=== PATIENT | male | born 1995 | race Caucasian/White ===

== ENCOUNTER → 2018-05-31 13:58 | Outpatient (CLI) | payer OTHER, MEDICAID, SELFPAY ==
--- NOTE | 2018-05-31 | DI.MRI.S_ITS ---
PROCEDURE: MR KNEE RT WO CON INDICATIONS: PAIN IN RIGHT KNEE TECHNIQUE: Noncontrast sagittal PD fast spin echo and T2 fast spin echo with fat saturation, sagittal 3-D FLASH with fat saturation; coronal T1 spin echo and PD fast spin echo with fat saturation, and axial PD fast spin echo with fat saturation through the knee. COMPARISON: None. FINDINGS: Image quality: Excellent. Menisci: The medial and lateral menisci demonstrate normal morphology and internal signal. The meniscal root ligaments appear intact. Cruciate ligaments: The anterior and posterior cruciate ligaments appear intact. Medial structures: The medial collateral ligament appears intact. The posterior oblique ligament, semimembranosus tendon insertions, oblique popliteal ligament, and meniscocapsular junction appear intact. Visualized portions of the pes anserinus tendons appear normal. No abnormal bursal fluid. Lateral structures: The lateral collateral ligament, long and short heads of the biceps femoris tendon appear intact. The popliteus tendon appears normal; the popliteofibular ligament appears intact. The posterosuperior and anteroinferior popliteomeniscal fascicles appear intact. The arcuate and fabellofibular ligaments appear intact, on either side of the lateral inferior geniculate artery. Iliotibial band appears normal. Anterior structures: The quadriceps tendon appears intact. There is mild thickening of the proximal and distal patellar tendon with mild internal signal change within the distal insertion. There is extensive soft tissue edema surrounding the distal insertion of the patellar tendon Patellar alignment is normal. No femoral trochlear dysplasia or ventral trochlear prominence. No edema in the infrapatellar fat pad. Bones and cartilage: No bone marrow contusions or fractures. The cartilage of the medial and lateral femorotibial compartments, as well as the patellofemoral compartment, appears normal in thickness. Joint space: There is physiologic knee joint fluid. No Gallardo's cyst. Normal appearing synovial plicae are incidentally noted. IMPRESSION: Proximal and distal patellar tendinopathy with adjacent soft tissue edema. Elsewhere, no internal derangement. Dictated by: Clarence Daley M.D. on 05/31/2018 at 15:29 Approved by: Clarence Daley M.D. on 05/31/2018 at 15:34
== END ==
PROVIDERS: Family Provider Physical Medicine & Rehabilitation; PCP Physical Medicine & Rehabilitation; Visit Provider Family Medicine Geriatric Medicine
DX: M25.561 Pain in right knee (principal); R60.0 Localized edema
CPT/HCPCS: 73721

== ENCOUNTER → 2022-05-23 11:42 | Outpatient (CLI) | payer OTHER, SELFPAY ==
--- NOTE | 2022-05-23 11:48 | DI.MRI.S_ITS ---
PROCEDURE: MR KNEE RT WO CON INDICATIONS: Pain in right knee TECHNIQUE: Noncontrast sagittal PD fast spin echo and T2 fast spin echo with fat saturation, sagittal 3-D FLASH with fat saturation; coronal T1 spin echo and PD fast spin echo with fat saturation, and axial PD fast spin echo with fat saturation through the knee. COMPARISON: [facility], MR, MR KNEE RT WO CON, 05/31/2018, 14:17. FINDINGS: Image quality: Excellent. Menisci: There is mild T2 signal elevation at the posterior meniscal capsular junction of the posterior horn medial meniscus. Medial meniscus is otherwise within normal limits. Lateral meniscus is within normal limits. Cruciate ligaments: The anterior and posterior cruciate ligaments appear intact. Medial structures: The medial collateral ligament appears intact. Visualized portions of the pes anserinus tendons appear normal. No abnormal bursal fluid. Lateral structures: The lateral collateral ligament, long and short heads of the biceps femoris tendon appear intact. The popliteus tendon appears normal. Iliotibial band appears normal. Anterior structures: The quadriceps and patellar tendons appear intact. Previously seen high T2 signal intensity within the patellar tendon has resolved. Patellar alignment is normal. No femoral trochlear dysplasia or ventral trochlear prominence. No edema in the infrapatellar fat pad. Bones and cartilage: No bone marrow contusions or fractures. The cartilage of the medial and lateral femorotibial compartments, as well as the patellofemoral compartment, appears normal in thickness. Joint space: There is physiologic knee joint fluid. No Gallardo's cyst. Normal appearing synovial plicae are incidentally noted. IMPRESSION: 1. Meniscal capsular junction injury involving the medial meniscus. 2. Resolved patellar tendinitis. Dictated by: Marci Bolton M.D. on 05/23/2022 at 13:34 Approved by: Marci Bolton M.D. on 05/23/2022 at 16:29
== END ==
PROVIDERS: Referring Provider Orthopaedic Surgery; Visit Provider Orthopaedic Surgery
DX: S83.8X1A Sprain of other specified parts of right knee, initial encounter (principal); M25.561 Pain in right knee; X58.XXXA Exposure to other specified factors, initial encounter
CPT/HCPCS: 73721